=== PATIENT | female | born 1960 | race Caucasian/White ===

== ENCOUNTER 2016-12-23 16:37 | Emergency (ER) | payer MEDICAID ==
--- NOTE | 2016-12-23 17:36 | EDM.PDOC ---
ED HPI GENERAL MEDICAL PROBLEM - General Chief Complaint: Eye Problems Stated Complaint: white discoloration to eyes and Palpitations Time Seen by Provider: 12/23/16 16:50 Source of Information: Reports: Patient History Limitations: Reports: No Limitations - History of Present Illness INITIAL COMMENTS - FREE TEXT/NARRATIVE: HISTORY AND PHYSICAL: History of present illness: [Patient comes to the emergency room with 2 complaints. #1 She noticed a white discoloration to the iris of her eyes. She has had no blurred vision or double vision. No mattering or discharge. She noticed the white discoloration to the superior aspect of both irises when she looked into her magnifying mirror.#2 She reports a history of heart palpitations for the past 5 years. States that she has discussed this with Dr Devi, her PCP, but doesn't remember his recommendations. She states that she had an episode of palpitations last evening when she could feel her heart pounding in her chest. Denies any episode of palpitations today. She experienced no chest pain, shortness of breath or difficulty breathing last night. No pain in her back or abdomen. She is otherwise feeling well. She has recently started a new diet plan. Restarted smoking over the past few months. ] Review of systems: As per history of present illness and below otherwise all systems reviewed and negative. Past medical history: As per history of present illness and as reviewed below otherwise noncontributory. Surgical history: As per history of present illness and as reviewed below otherwise noncontributory. Social history: No reported history of drug or alcohol abuse. Family history: As per history of present illness and as reviewed below otherwise noncontributory. Physical exam: HEENT: Atraumatic, normocephalic. Mild injection to medial L eye. Haziness to superior aspect of both irises, L>R. Consistent with arcus senilis. Ophthalmic exam shows normal appearing optic disc. No cotton wool spots. mucous membranes moist. Lungs: Clear to auscultation, breath sounds equal bilaterally. Heart: S1S2, regular rate and rhythm. Abdomen: Obese, soft, nondistended, nontender. Negative for masses, guarding or rebound. Pelvis: Stable nontender. Genitourinary: Deferred. Rectal: Deferred. Extremities: Atraumatic, negative for cords or calf pain. No cyanosis or edema to feet or lower legs. Neurovascular unremarkable. Neuro: Awake, alert, oriented. Motor and sensory unremarkable throughout. Exam nonfocal. Diagnostics: [EKG, CBC, CMP, troponin, PT/INR/PTT] Impression: [arcus senilis palpitations] Plan: [Patient advised to follow up with Dr. Devi to discuss her ongoing palpitations , and to establish with a local eye doctor. Discussed w/ her that her labs are normal and EKG shows no acute findings. Discharged to home with instructions to follow up as above. ] Definitive disposition and diagnosis as appropriate pending reevaluation and review of above. - Related Data Allergies Allergy/AdvReac Type Severity Reaction Status Date / Time No Known Allergies Allergy Verified 12/23/16 16:54 Home Meds: Home Meds Citalopram Hydrobromide [Celexa] 40 mg PO DAILY 03/29/15 [History] ClonazePAM [KlonoPIN] 1 mg PO BID 12/23/16 [History] Meloxicam [Mobic] 15 mg PO DAILY 12/23/16 [History] Omeprazole 20 mg PO DAILY 12/23/16 [History] Zolpidem Tartrate [Zolpidem Tartrate] 5 mg PO BEDTIME 12/23/16 [History] metFORMIN [Glucophage] 500 mg PO BIDMEALS 12/23/16 [History] Past Medical History Cardiovascular History: Reports: Other (See Below) Other Cardiovascular History: hx heart palpitations Respiratory History: Reports: SOB Other Respiratory History: does not use CPAP Other Musculoskeletal History: lumbosacral radiculopathy at L5 - Past Surgical History Other Female Surgeries/Procedures: hx tubal ligation Social & Family History - Family History Family Medical History: Noncontributory - Tobacco Use Smoking Status *Q: Current Every Day Smoker Years of Tobacco use: 40 Packs/Tins Daily: 1 - Recreational Drug Use Recreational Drug Use: No Drug Use in Last 12 Months: No ED ROS GENERAL - Review of Systems Review Of Systems: ROS reveals no pertinent complaints other than HPI. ED EXAM GENERAL W FULL EYE - Physical Exam Exam: See Below Course - Vital Signs Last Recorded V/S: Last Vital Signs Temp 97.1 F 12/23/16 16:57 Pulse 64 12/23/16 17:42 Resp 14 12/23/16 17:42 BP 109/58 L 07/23/17 17:42 Pulse Ox 93 L 12/23/16 17:42 - Orders/Labs/Meds Orders: Active Orders 24 hr Category Date Time Status EKG Documentation Completion [RC] STAT Care 12/23/16 17:17 Active Labs: Laboratory Tests 12/23/16 12/23/16 12/23/16 Range/Units 17:28 17:28 17:28 WBC 9.35 (4.0-11.0) K/uL RBC 4.78 (4.30-5.90) M/uL Hgb 14.1 (12.0-16.0) g/dL Hct 41.6 (36.0-46.0) % MCV 87.0 (80.0-98.0) fL MCH 29.5 (27.0-32.0) pg MCHC 33.9 (31.0-37.0) g/dL RDW Std Deviation 43.6 (28.0-62.0) fl RDW Coeff of Octavio 14 (11.0-15.0) % Plt Count 308 (150-400) K/uL MPV 9.00 (7.40-12.00) fL Neut % (Auto) 60.0 (48.0-80.0) % Lymph % (Auto) 31.9 (16.0-40.0) % [place] % (Auto) 4.6 (0.0-15.0) % Eos % (Auto) 3.1 (0.0-7.0) % Baso % (Auto) 0.4 (0.0-1.5) % Neut # (Auto) 5.6 (1.4-5.7) K/uL Lymph # (Auto) 3.0 H (0.6-2.4) K/uL [place] # (Auto) 0.4 (0.0-0.8) K/uL Eos # (Auto) 0.3 (0.0-0.7) K/uL Baso # (Auto) 0.0 (0.0-0.1) K/uL Nucleated RBC % 0.0 /100WBC Nucleated RBCs # 0 K/uL INR 0.94 (0.86-1.11) Sodium 139 (136-146) mmol/L Potassium 4.1 (3.5-5.1) mmol/L Chloride 106 (98-110) mmol/L Carbon Dioxide 25 (21-31) mmol/L BUN 10 (6.0-23.0) mg/dL Creatinine 0.8 (0.6-1.5) mg/dL Est Cr Clr Drug Dosing 59.96 mL/min Estimated GFR (MDRD) > 60.0 ml/min Glucose 99 (60-110) mg/dL Calcium 9.7 (8.8-10.8) mg/dL Total Bilirubin 0.4 (0.1-1.5) mg/dL AST 16 (5-40) IU/L ALT 21 (8-54) IU/L Alkaline Phosphatase 118 (40-150) Troponin I (0.0-0.29) NG/ML Total Protein 7.2 (6.0-8.0) g/dL Albumin 3.7 (3.5-5.0) g/dL Globulin 3.5 (2.0-3.5) g/dL Albumin/Globulin Ratio 1.1 L (1.3-2.8) 12/23/16 Range/Units 17:28 WBC (4.0-11.0) K/uL RBC (4.30-5.90) M/uL Hgb (12.0-16.0) g/dL Hct (36.0-46.0) % MCV (80.0-98.0) fL MCH (27.0-32.0) pg MCHC (31.0-37.0) g/dL RDW Std Deviation (28.0-62.0) fl RDW Coeff of Octavio (11.0-15.0) % Plt Count (150-400) K/uL MPV (7.40-12.00) fL Neut % (Auto) (48.0-80.0) % Lymph % (Auto) (16.0-40.0) % [place] % (Auto) (0.0-15.0) % Eos % (Auto) (0.0-7.0) % Baso % (Auto) (0.0-1.5) % Neut # (Auto) (1.4-5.7) K/uL Lymph # (Auto) (0.6-2.4) K/uL [place] # (Auto) (0.0-0.8) K/uL Eos # (Auto) (0.0-0.7) K/uL Baso # (Auto) (0.0-0.1) K/uL Nucleated RBC % /100WBC Nucleated RBCs # K/uL INR (0.86-1.11) Sodium (136-146) mmol/L Potassium (3.5-5.1) mmol/L Chloride (98-110) mmol/L Carbon Dioxide (21-31) mmol/L BUN (6.0-23.0) mg/dL Creatinine (0.6-1.5) mg/dL Est Cr Clr Drug Dosing mL/min Estimated GFR (MDRD) ml/min Glucose (60-110) mg/dL Calcium (8.8-10.8) mg/dL Total Bilirubin (0.1-1.5) mg/dL AST (5-40) IU/L ALT (8-54) IU/L Alkaline Phosphatase (40-150) Troponin I < 0.10 (0.0-0.29) NG/ML Total Protein (6.0-8.0) g/dL Albumin (3.5-5.0) g/dL Globulin (2.0-3.5) g/dL Albumin/Globulin Ratio (1.3-2.8) Departure - Departure Time of Disposition: 18:40 Disposition: Home, Self-Care 01 Condition: Good Clinical Impression: Arcus senilis of both eyes, Palpitations - Discharge Information Instructions: Artificial Tears eye solution, Palpitations, [id number] Referrals: PCP,None [Primary Care Provider] - Forms: ED Department Discharge Additional Instructions: The following information is given to patients seen in the emergency department who are being discharged to home. This information is to outline your options for follow-up care. We provide all patients seen in our emergency department with a follow-up referral. The need for follow-up, as well as the timing and circumstances, are variable depending upon the specifics of your emergency department visit. If you don't have a primary care physician on staff, we will provide you with a referral. We always advise you to contact your personal physician following an emergency department visit to inform them of the circumstance of the visit and for follow-up with them and/or the need for any referrals to a consulting specialist. The emergency department will also refer you to a specialist when appropriate. This referral assures that you have the opportunity for follow-up care with a specialist. All of these measure are taken in an effort to provide you with optimal care, which includes your follow-up. Under all circumstances we always encourage you to contact your private physician who remains a resource for coordinating your care. When calling for follow-up care, please make the office aware that this follow-up is from your recent emergency room visit. If for any reason you are refused follow-up, please contact the [facility] emergency department at and asked to speak to the emergency department charge nurse. [facility] [address] [place] [address] Follow-up with your primary care provider at the clinic listed above in 48-72 hours. Return to ER as needed as discussed. - My Orders Last 24 Hours: My Active Orders 12/23/16 17:17 EKG Documentation Completion [RC] STAT - Assessment/Plan Last 24 Hours: My Active Orders 12/23/16 17:17 EKG Documentation Completion [RC] STAT
[2016-12-23 17:58] LABS: CHLORIDE,CL 106 mmol/L (98-110); SODIUM,NA 139 mmol/L (136-146)
[2016-12-23 18:49] VITALS: BP 118/76
== END 2016-12-23 18:48 | disposition home or self-care (01) ==
LOC: MW.ED 16:37
DX: H18.413 Arcus senilis, bilateral (principal); R00.2 Palpitations; F17.210 Nicotine dependence, cigarettes, uncomplicated; Z79.84 Long term (current) use of oral hypoglycemic drugs; Z79.899 Other long term (current) drug therapy
CPT/HCPCS: 36415; 80053; 84484; 85025; 85610; 93005; 99282; 99285-25

== ENCOUNTER 2018-11-10 08:52 | Inpatient (IN) | payer MEDICARE, MEDICAID ==
[~2018-11-10 08:52] MED LIST: Famotidine 20 MG/2 ML SDV IVPUSH SCH; Ropivacaine 49.25 ML, Ketorolac 30 MG, EPINEPHrine 0.5 MG, cloNIDine 80 MCG in Sodium C... INJECT SCH; Scopolamine 1.5 MG Transdermal Patch TRDERM SCH; Tranexamic Acid 2,000 MG in Sodium Chloride 0.9% 100 ML IV ONE; ceFAZolin 2 GM in Premix Bag 1 BAG IV SCH; oxyCODONE 5 MG Tab PO PRN
[2018-11-10] MEDS: Lactated Ringers 1,000 ML IV SCH ×2 (09:52→15:17)
[2018-11-10] MEDS: Acetaminophen 1,000 MG in Premix Bag 1 BAG IV SCH ×2 (09:58→18:41)
[2018-11-10] MEDS ORDERED: fentaNYL 100 MCG/2 ML SDV ONE (10:08)
[2018-11-10] MEDS ORDERED: Midazolam 1 MG/ML 2 ML SDV ONE (10:08)
[2018-11-10] MEDS ORDERED: Propofol 200 MG/20 ML SDV ONE (10:08)
--- NOTE | 2018-11-10 10:17 | PCM.PREANE ---
Preanesthetic Assessment - Anesthesia/Transfusion/Family Hx Anesthesia History: Prior Anesthesia Without Reaction Family History of Anesthesia Reaction: No Transfusion History: No Prior Transfusion(s) Intubation History: Unknown - Review of Systems General: No Symptoms Pulmonary: No Symptoms Cardiovascular: No Symptoms Gastrointestinal: No Symptoms Neurological: No Symptoms Other: Reports: None - Physical Assessment O2 Sat by Pulse Oximetry: 95 Respiratory Rate: 16 Vital Signs: Last Vital Signs Temp 36.2 C 11/10/18 09:22 Pulse 62 11/10/18 09:22 Resp 16 11/10/18 09:22 BP 126/57 L 11/10/18 09:22 Pulse Ox 95 11/10/18 09:22 Height: 5 ft 2 in Weight: 95.708 kg ASA Class: 3 Mental Status: Alert & Oriented x3 Airway Class: Mallampati = 2 Dentition: Reports: Dentures (upper) Thyro-Mental Finger Breadths: 3 Mouth Opening Finger Breadths: 3 ROM/Head Extension: Full Lungs: Clear to Auscultation, Normal Respiratory Effort, Decreased Breath Sounds Cardiovascular: Regular Rate, Regular Rhythm - Allergies Allergies/Adverse Reactions: Allergies Allergy/AdvReac Type Severity Reaction Status Date / Time No Known Allergies Allergy Verified 11/10/18 09:59 - Blood Blood Available: No - Anesthesia Plan Pre-Op Medication Ordered: None - Acknowledgements Anesthesia Type Planned: Spinal (general anesthesia back-up plan) Pt an Appropriate Candidate for the Planned Anesthesia: Yes Alternatives and Risks of Anesthesia Discussed w Pt/Guardian: Yes Pt/Guardian Understands and Agrees with Anesthesia Plan: Yes PreAnesthesia Questionnaire HEENT History: Reports: Other (See Below) Other HEENT History: wears glasses, has upper denture and lower partial removable denture Cardiovascular History: Reports: Other (See Below) Other Cardiovascular History: hx heart palpitations Respiratory History: Reports: COPD (can't walk 2 blocks without SOB), Sleep Apnea Other Respiratory History: does not tolerate a CPAP, but has "been better" since weight loss Gastrointestinal History: Reports: GERD, Other (See Below) Other Gastrointestinal History: occasional "dumping syndrome" Genitourinary History: Reports: 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 A1c was 5.6 in august - Infectious Disease History Infectious Disease History: Reports: Chicken Pox - Past Surgical History GI Surgical History: Reports: Bariatric Procedure, Cholecystectomy Other GI Surgeries/Procedures: Bariatric surgery 8 months ago Female Surgical History: Reports: Tubal Ligation - SUBSTANCE USE Smoking Status *Q: Current Every Day Smoker (1 pack lasts 3 days) Tobacco Use Within Last Twelve Months: Cigarettes Recreational Drug Use History: No - HOME MEDS Home Medications: Home Meds Budesonide/Formoterol [Symbicort 160-4.5 MCG] 2 puff INH BID 05/01/18 [History] Citalopram Hydrobromide [Celexa] 40 mg PO BEDTIME 05/01/18 [History] Omeprazole 40 mg PO QAM 05/01/18 [History] clonazePAM [Clonazepam] 1 mg PO BID 05/01/18 [History] Albuterol Sulfate [Albuterol Sulfate Hfa] 1 puff INH ASDIRECTED PRN 11/06/18 [ History] Fluticasone/Salmeterol [Advair 250-50 Diskus] 0 dose INH BID 11/06/18 [History] - CURRENT (IN HOUSE) MEDS Current Meds: Current Medications Famotidine (Pepcid) 40 mg IVPUSH ONARRIVE VICTOR MANUEL Last Admin: 11/10/18 09:53 Dose: 40 mg Acetaminophen 1,000 mg/ Premix 100 mls @ 400 mls/hr IV ONARRIVE VICTOR MANUEL Last Admin: 11/10/18 09:58 Dose: 400 mls/hr Cefazolin Sodium/Dextrose 2 gm (/ Premix) 50 mls @ 100 mls/hr IV ONCALL VICTOR MANUEL Ropivacaine 49.25 ml/Ketorolac Tromethamine 30 mg/Epinephrine HCl 0.5 mg/ Clonidine HCl 80 mcg/ Sodium Chloride 75 mls @ 50 mls/sec INJECT ASDIRECTED VICTOR MANUEL Lactated Ringer's (Ringers, Lactated) 1,000 mls @ 100 mls/hr IV ASDIRECTED VICTOR MANUEL Last Admin: 11/10/18 09:52 Dose: 100 mls/hr Scopolamine (Transderm-Scop) 1.5 mg TRDERM ONARRIVE [facility] Last Admin: 11/10/18 09:52 Dose: 1.5 mg Discontinued Medications Fentanyl (Sublimaze) Confirm Administered Dose 100 mcg .ROUTE .STK-MED ONE Stop: 11/10/18 10:09 Tranexamic Acid 2,000 mg/ (Sodium Chloride) 120 mls @ 600 mls/hr IV ASDIRECTED ONE Stop: 11/10/18 06:11 Midazolam HCl (Versed 1 Mg/Ml) Confirm Administered Dose 2 mg .ROUTE .STK-MED ONE Stop: 11/10/18 10:09 Propofol (Diprivan 20 Ml) Confirm Administered Dose 400 mg .ROUTE .STK-MED ONE Stop: 11/10/18 10:09 Tranexamic Acid (Cyklokapron) Confirm Administered Dose 2,000 mg .ROUTE .STK- MED ONE Stop: 11/10/18 09:21
[2018-11-10] MEDS ORDERED: Glycopyrrolate 0.2 MG/ML SDV ONE (12:05)
[2018-11-10] MEDS ORDERED: ceFAZolin/Dextrose,Iso-Osmotic 2 GM/50 ML Duplex Bag IV ONE (12:05)
--- NOTE | 2018-11-10 13:21 | PCM.OPNOTE ---
- General Post-Op/Procedure Note Date of Surgery/Procedure: 11/10/18 Operative Procedure(s): R TKA Post-Op Diagnosis: DJD R knee Anesthesia Technique: Moderate Sedation, Spinal Primary Surgeon: Cher Devi Truck Supervisor: Lindsey Parish in mLs: 50 Condition: Good Free Text/Narrative:: tt=44 min #[id number]
[2018-11-10] MEDS ORDERED: Bisacodyl 10 MG Supp RECTAL PRN (13:22)
[2018-11-10] MEDS ORDERED: diphenhydrAMINE 25 MG Cap PO PRN (13:22)
[2018-11-10] MEDS ORDERED: Docusate Sodium 100 MG Cap PO PRN (13:22)
[2018-11-10] MEDS ORDERED: Sodium Chloride 0.9% 10 ML Syringe FLUSH PRN (13:22)
[2018-11-10] MEDS ORDERED: Aluminum Hydroxide/Magnesium Hydroxide/Simethicone Susp 30 ML Cup PO PRN (13:22)
[2018-11-10] MEDS ORDERED: Morphine PF 30 MG/30 ML PCA Vial IV PRN (13:22)
[2018-11-10] MEDS ORDERED: Ondansetron 4 MG/2 ML SDV IVPUSH PRN (13:22)
[2018-11-10] MEDS ORDERED: Sodium Chloride 0.9% 2.5 ML Syringe FLUSH PRN (13:22)
[2018-11-10] MEDS ORDERED: Lactated Ringers 1,000 ML IV SCH (13:30)
--- NOTE | 2018-11-10 14:26 | PCM.POSTAN ---
POST ANESTHESIA ASSESSMENT - MENTAL STATUS Mental Status: Alert - VITAL SIGNS Pulse Rate: 46 SaO2: 96 Resp Rate: 18 Blood Pressure: 117/77 - RESPIRATORY Respiratory Status: Respiratory Rate WNL, Airway Patent, O2 Saturation Stable, Supplemental Oxygen - CARDIOVASCULAR CV Status: Blood Pressure Stable, Slow Pulse Rate (HR in the 40's, 0.2 mg of glycopyrrolate given per Dr. Wing request. Pt is alert and oriented times three. BP WNL.), Other - GASTROINTESTINAL GI Status: No Symptoms - POST OP HYDRATION Hydration Status: Adequate & Stable
[2018-11-10] MEDS ORDERED: Albuterol 8 GM Inhaler INH PRN (14:35)
--- NOTE | 2018-11-10 16:04 | PCM.CONS ---
H&P History of Present Illness - General Date of Service: 11/10/18 Admit Problem/Dx: s/p RIGHT TKA - History of Present Illness Initial Comments - Free Text/Narative: 58 y/o female with history of DM2 s/p right TKA. States that she is not taking anything for her DM2. Has been under control with diet and weight loss. States her right knee pain is tolerable at this moment. Denies any nausea, vomiting, chest pain, dyspnea, abdominal pain, dysuria, diarrhea, constipation. - Related Data Allergies/Adverse Reactions: Allergies Allergy/AdvReac Type Severity Reaction Status Date / Time No Known Allergies Allergy Verified 11/10/18 09:59 Home Medications: Home Meds Budesonide/Formoterol [Symbicort 160-4.5 MCG] 2 puff INH BID 05/01/18 [History] Citalopram Hydrobromide [Celexa] 40 mg PO BEDTIME 05/01/18 [History] Omeprazole 40 mg PO QAM 05/01/18 [History] clonazePAM [Clonazepam] 1 mg PO BID 05/01/18 [History] Albuterol Sulfate [Albuterol Sulfate Hfa] 2 puff INH Q4H PRN 11/06/18 [History] Fluticasone/Salmeterol [Advair 250-50 Diskus] 0 dose INH BID 11/06/18 [History] Acetaminophen/HYDROcodone [[place] 325-5 MG] 1 - 2 tab PO Q4H PRN #60 tablet 11/10 [Rx] Aspirin 81 mg PO BID #60 tablet 11/10/18 [Rx] Docusate Sodium [Colace] 100 mg PO BID PRN #60 cap 11/10/18 [Rx] Polyethylene Glycol 3350 [MiraLAX] 17 gm PO DAILY #600 gram 11/10/18 [Rx] cephALEXin [Keflex] 500 mg PO BID 7 Days #14 cap 11/10/18 [Rx] metFORMIN [Glucophage] 500 mg PO DAILY 11/10/18 [History] Past Medical History HEENT History: Reports: Other (See Below) Other HEENT History: wears glasses, has upper denture and lower partial removable denture Cardiovascular History: Reports: Other (See Below) Other Cardiovascular History: hx heart palpitations Respiratory History: Reports: COPD (can't walk 2 blocks without SOB), Sleep Apnea Other Respiratory History: does not tolerate a CPAP, but has "been better" since weight loss Gastrointestinal History: Reports: GERD, Other (See Below) Other Gastrointestinal History: occasional "dumping syndrome" Genitourinary History: Reports: 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 A1c was 5.6 in august - Infectious Disease History Infectious Disease History: Reports: Chicken Pox - Past Surgical History GI Surgical History: Reports: Bariatric Procedure, Cholecystectomy Other GI Surgeries/Procedures: Bariatric surgery 8 months ago Female Surgical History: Reports: Tubal Ligation Social & Family History - Family History Family Medical History: Noncontributory - Tobacco Use Smoking Status *Q: Current Every Day Smoker (1 pack lasts 3 days) Years of Tobacco use: 30 Packs/Tins Daily: 0.3 - Caffeine Use Caffeine Use: Reports: None - Recreational Drug Use Recreational Drug Use: No Drug Use in Last 12 Months: No H&P Review of Systems - Review of Systems: Review Of Systems: ROS reveals no pertinent complaints other than HPI. Exam - Exam Exam: See Below - Vital Signs Vital Signs: Last Vital Signs Temp 36.6 C 11/10/18 13:15 Pulse 46 L 11/10/18 14:25 Resp 18 11/10/18 14:25 BP 117/77 11/10/18 14:25 Pulse Ox 96 11/10/18 14:25 Weight: 95.708 kg - Exam General: Alert, Oriented, Cooperative HEENT: Conjunctiva Clear, Mucosa Moist & [place] Lungs: Clear to Auscultation, Normal Respiratory Effort. No: Crackles, Wheezing Cardiovascular: Regular Rate, Regular Rhythm GI/Abdominal Exam: Normal Bowel Sounds, Soft, Non-Tender Extremities: Normal Inspection, No Pedal Edema, Other (Able to move right lower extremity toes. ) Skin: Warm, Dry Neuro Extensive - Mental Status: Alert, Oriented x3 - Patient Data Lab Results Last 24 hrs: Laboratory Results - last 24 hr 11/10/18 11/10/18 11/10/18 Range/Units 09:44 11:03 13:56 POC Glucose 98 102 (60-110) mg/dL Blood Type O POSITIVE Antibody Screen NEGATIVE Consult PN Assessment/Plan Procedures: Procedures ASSAY OF LIPASE (05/01/18) ASSAY OF TROPONIN QUANT (12/23/16) ASSAY THYROID STIM HORMONE (05/05/15) COMPLETE CBC AUTOMATED (05/05/15) COMPLETE CBC W/AUTO DIFF WBC (05/01/18) COMPREHEN METABOLIC PANEL (05/01/18) CT ABD & PELV W/CONTRAST (05/01/18) CT MAXILLOFACIAL W/DYE (06/25/17) CT THORAX W/O DYE (09/01/18) DIAGNOSTIC COLONOSCOPY (04/15/15) ELECTROCARDIOGRAM TRACING (12/23/16) EMERGENCY DEPT VISIT (05/01/18) EMERGENCY DEPT VISIT (12/23/16) GLYCOSYLATED HEMOGLOBIN TEST (06/21/17) HYDRATE IV INFUSION ADD-ON (05/01/18) LIPID PANEL (06/21/17) MEDICAL NUTRITION INDIV IN (05/10/17) MRI JNT OF LWR EXTRE W/O DYE (06/01/15) MRI LUMBAR SPINE W/O DYE (11/26/16) OFFICE/OUTPATIENT VISIT EST (01/08/18) POLYSOM 6/>YRS CPAP 4/> PARM (03/28/18) PROTHROMBIN TIME (12/23/16) ROUTINE VENIPUNCTURE (05/01/18) THER/PROPH/DIAG INJ IV PUSH (05/01/18) TX/PRO/DX INJ NEW DRUG ADDON (05/01/18) ULTRASOUND BREAST LIMITED (07/22/17) UR ALBUMIN SEMIQUANTITATIVE (06/21/17) URINALYSIS AUTO W/SCOPE (05/01/18) URINE CULTURE/COLONY COUNT (05/01/18) X-RAY EXAM L-S SPINE 2/3 VWS (11/01/16) X-RAY EXAM OF KNEE 1 OR 2 (11/15/16) X-RAY EXAM OF KNEE 3 (11/01/16) Problem List Initiated/Reviewed/Updated: Yes Plan: 58 y/o female with history of DM2 s/p right TKA on 11/10/[address] Devi. Currently, hemodynamically stable. Her blood pressure and DM2 seem to be under control. Will order nicotine patch. Pain control and anticoagulation per Ortho.
--- NOTE | 2018-11-10 16:19 | CR ---
EXAMINATION: Right knee HISTORY: Postoperative COMPARISON: None TECHNIQUE: 2 views FINDINGS/IMPRESSION: Right total knee hardware is demonstrated in good position and alignment. Postoperative soft tissue changes are noted.
--- NOTE | 2018-11-10 18:09 | OR ---
SURGEON: Cher Devi MD DATE OF PROCEDURE: 11/10/2018 PREOPERATIVE DIAGNOSIS: Degenerative joint disease, right knee, tricompartmental. POSTOPERATIVE DIAGNOSIS: Degenerative joint disease, right knee, tricompartmental. PROCEDURE: Right total knee arthroplasty. PRIMARY SURGEON: Cher Devi MD. INTAKE COORDINATOR: SHERRY Kimbrough. REASON AND ROLE FOR INTAKE COORDINATOR: Retraction, prepping, draping, positioning, and closure assistance. ANESTHESIA: Spinal with sedation. ESTIMATED BLOOD LOSS: 50 mL. TOURNIQUET TIME: 44 minutes. COMPLICATIONS: None. DVT PROPHYLAXIS: PAS boot and STAR hose to the nonoperative leg. IMPLANTS USED: Lita Persona femoral component size 9 standard (LPS), tibial component size E, 11 mm all-polyethylene articular surface, and 32 mm all-polyethylene patella. INTRAOPERATIVE FINDINGS: Showed severe tricompartmental degenerative changes with grade 4 chondromalacia in all compartments and osteophyte formation. No significant synovitis was found. BRIEF HISTORY: Huyen is a 58-year-old female, who has been bothered by progressive right knee pain. She has previously undergone weight loss surgery and has now achieved a BMI of less than 40. Due to her lack of response to conservative treatment, I did recommend surgical intervention. The risks and goals of the procedure were discussed with the patient and were documented preoperatively. She agreed to proceed. DESCRIPTION OF PROCEDURE: The patient was properly identified and brought to the operating room. The patient was then transferred from the operating room cart and placed on the operating table in a supine position. Anesthesia was administered by the anesthesia staff. After adequate anesthesia was obtained, a well-padded tourniquet was applied to the surgical lower extremity. Wyatt catheter was placed. The lower extremity was then prepped in standard fashion using ChloraPrep solution. It was then sterilely draped. A time-out was performed to ensure correct site and procedure. Preoperative antibiotics were given along with one gram tranexamic acid IV. The surgical site had been marked preoperatively. An Esmarch was used to exsanguinate the right lower extremity and the tourniquet was inflated. An incision was made over the anterior aspect of the knee. The subcutaneous tissues were dissected down to the level of the fascia. A medial parapatellar approach to the knee was made. A portion of the infrapatellar fat pad was then excised. The distal femur was then exposed. The step reamer was used to gain access to the intramedullary canal. This was placed in 6 degrees of valgus. Pins were placed. The distal femoral cutting block was placed and the distal femoral cut was made. Instrumentation was then removed. The femur was then sized. Both Whitesides' line and the epicondylar axis were then marked with electrocautery. The 4-in-1 cutting block was placed. This was placed in a slightly externally rotated position, which corresponded well with the previously drawn lines. The cutting guide was then pinned into position. An Alberto wing guide was used to check the depth of resection of our anterior condylar cut and it was felt that no notching would occur. The anterior condylar cut was then made followed by the posterior condylar cut. Both the posterior chamfer and anterior chamfer cuts were then made. The cutting block was then removed along with the excess bony remnants. We then turned our attention to the tibia. The anterior cruciate ligament and posterior cruciate ligament were released and a posterior cruciate ligament retractor was placed to allow the tibia to be pulled anteriorly. The tibial extra-medullary guide was then positioned. We chose to take approximately 2 mm off the lowest side. The proximal tibia cutting guide was then placed and screwed into position. The proximal tibial resection was then made with care being taken to protect the patellar tendon. The bony resection was then removed. The remainder of the medial and lateral meniscus were then excised. Care was taken to protect the popliteus tendon. The tibia was then sized to the appropriate size. The distal femur was then elevated. The posterior capsule was stripped off the distal femur both medially and laterally. The posterior capsule along with the medial and lateral gutters were then injected with a standard mixture consisting of clonidine, epinephrine, Toradol, and Ropivacaine, unless any allergies were found preoperatively. The femoral component was then placed onto the distal femur in a slightly lateral position. This fit the femur well. A box cut was then made without difficulty. This was then removed. The tibial trial along with the polyethylene liner was then placed. The knee came easily into full extension and was stable to varus and valgus stressing both in full extension and flexion. Any additional releases were performed at this time. We then returned our attention to the patella. The patella was everted and towel clamps were used to hold the patella in position. It was resected to a 15 millimeter thickness. It was then sized to the appropriate size. It was prepared in the usual fashion after placing the predetermined size clamps. This was placed in a slightly superior and medial position. The clamp was then removed. The patellar trial button was placed. The knee was taken through a range of motion using the no-touch technique. The patella tracked centrally. A drop rodney was then placed to check alignment. All instruments were then removed from the knee. The tibial sizer was then placed on the tibia. The tibia was prepared in the usual fashion using the reamer and broach. This was then removed. All bony surfaces were copiously irrigated with Pulsavac solution. They were then suctioned dry. Cement was prepared on the back table in the usual manner. Antibiotic impregnated cement was used if the patient was diabetic. Once it was prepared, the bone ends were again suctioned dry. The tibia was cemented into place first. This was malleted into position. Excess cement was then cleared. The femur was then placed in a similar manner. We placed the polyethylene trial into place and the knee was brought into full extension. An axial load was placed while keeping the knee in full extension. The patella button was also cemented into position and the clamp was used to hold this in place as the cement was allowed to cure. The wound was copiously irrigated with saline using a Pulsavac hot patcher. Following this, 1 gram of tranexamic acid was applied topically to the wound during the curing process. After we had adequate curing of the cement, the knee was again taken through a range of motion. The size of the polyethylene was then determined. The polyethylene trial was then removed. The tibial tray was suctioned to make sure there was no remaining soft tissue or cement. Excess cement was cleared from around the edges of the prosthesis as well. The tourniquet was then deflated. We were able to observe for any excess bleeding and none was noted. Electrocautery was used to maintain hemostasis. An additional gram of tranexamic acid was given IV. The retractors were again placed and the predetermined polyethylene was then placed. This was locked into position without difficulty. The knee was again taken through a range of motion with no change from the prior exam. The fascial layer was closed with Number One Vicryl. The subcutaneous tissues were closed with 2-0 Vicryl. The skin was closed with carol. Xeroform gauze was placed over the wound and a bulky dressing was applied. The patient was then awakened from anesthesia and transferred back to the operating room cart. They were brought to the recovery room in stable condition. All needle and sponge counts were correct. ARJUN ROE /[id number]
[2018-11-10] MEDS: Nicotine 7 MG/24 Hr Patch TRDERM SCH (18:40)
[2018-11-10] MEDS ORDERED: Citalopram 20 MG Tab PO SCH (21:00)
[2018-11-10] MEDS: ceFAZolin 2 GM in Premix Bag 1 BAG IV SCH (21:30)
[2018-11-10] MEDS: Fluticasone/Salmeterol 250-50 MCG Inhalation Powder 14/Diskus INH SCH (21:34)
[2018-11-10] MEDS: Budesonide/Formoterol 160-4.5 MCG/Puff 6 GM Inhaler INH SCH (21:35)
[2018-11-11] MEDS: Acetaminophen 1,000 MG in Premix Bag 1 BAG IV SCH ×3 (00:54→05:18)
[2018-11-11] MEDS: Lactated Ringers 1,000 ML IV SCH (02:34)
[2018-11-11] MEDS: ceFAZolin 2 GM in Premix Bag 1 BAG IV SCH (04:13)
[2018-11-11] MEDS ORDERED: Morphine 2 MG/ML Syringe IVPUSH PRN (06:00)
[2018-11-11] MEDS: Acetaminophen/HYDROcodone 325-5 MG Tab PO PRN ×2 (06:46→11:39)
[2018-11-11] MEDS ORDERED: Cephalexin 500 MG Cap PO SCH (09:00)
[2018-11-11] MEDS ORDERED: Famotidine 20 MG Tab PO SCH (09:00)
[2018-11-11] MEDS ORDERED: ClonazePAM 1 MG Tab PO PRN (09:00)
[2018-11-11] MEDS ORDERED: Aspirin 325 MG Tab PO SCH (09:00)
[2018-11-11] MEDS ORDERED: Polyethylene Glycol 3350 Powder 17 GM Packet PO SCH (09:00)
[2018-11-11] MEDS ORDERED: Aspirin 81 MG Tab.EC PO SCH (09:12)
[2018-11-11] MEDS: Fluticasone/Salmeterol 250-50 MCG Inhalation Powder 14/Diskus INH SCH (09:25)
[2018-11-11] MEDS: Budesonide/Formoterol 160-4.5 MCG/Puff 6 GM Inhaler INH SCH (09:27)
[2018-11-11] MEDS: Nicotine 7 MG/24 Hr Patch TRDERM SCH (09:31)
[2018-11-11 09:44] VITALS: BP 117/77
--- NOTE | 2018-11-11 09:44 | PCM48HPAN ---
Post Anesthesia Note - EVALUATION WITHIN 48HRS OF ANESTHETIC Vital Signs in Normal Range: Yes Patient Participated in Evaluation: Yes Respiratory Function Stable: Yes Airway Patent: Yes Cardiovascular Function Stable: Yes Hydration Status Stable: Yes Pain Control Satisfactory: Yes Nausea and Vomiting Control Satisfactory: Yes Mental Status Recovered: Yes Pulse Rate: 46 Resp Rate: 16 Blood Pressure: 117/77 - COMMENTS/OBSERVATIONS Free Text/Narrative:: no anesthesia problems
--- NOTE | 2018-11-11 12:44 | PCM.SURGPN ---
- General Info Date of Service: 11/11/18 (0745) Date of Surgery/Procedure: 11/10/18 (s/p RIGHT TKA) POD#: 1 Post-Op Diagnosis: degenerative joint disease right knee Admission Diagnosis/Problem: Knee pain Functional Status: Reports: Tolerating Diet (waiting for family to bring her a coffee), Ambulating. Denies: Urinating (cason catheter still inserted) - Review of Systems General: Reports: No Symptoms. Denies: Fever, Chills HEENT: Reports: No Symptoms Pulmonary: Reports: No Symptoms. Denies: Shortness of Breath, Cough Cardiovascular: Reports: No Symptoms. Denies: Chest Pain Gastrointestinal: Reports: No Symptoms. Denies: Abdominal Pain, Nausea, Vomiting Genitourinary: Reports: Other (requesting to have cason catheter removed) Musculoskeletal: Reports: Joint Pain Neurological: Denies: Confusion Psychiatric: Reports: Anxiety - Patient Data Vitals - Most Recent: Last Vital Signs Temp 36.8 C 11/11/18 07:20 Pulse 46 L 11/11/18 09:44 Resp 16 11/11/18 09:44 BP 117/77 11/11/18 09:44 Pulse Ox 93 L 11/11/18 07:20 Weight - Most Recent: 95.708 kg I&O - Last 24 Hours: Intake & Output 11/10/18 11/11/18 11/11/18 22:59 06:59 14:59 Intake Total 2179 Output Total 500 Balance 1679 Lab Results Last 24 Hrs: Laboratory Results - last 24 hr 11/10/18 11/11/18 Range/Units 13:56 06:08 Hgb 12.0 (12.0-16.0) g/dL Hct 37.8 (36.0-46.0) % POC Glucose 102 (60-110) mg/dL Med Orders - Current: Current Medications Hydrocodone Bitart/Acetaminophen (Freeman 325-5 Mg) 1 - 2 tab PO Q4H PRN PRN Reason: Pain Last Admin: 11/11/18 11:39 Dose: 2 tab Al Hydroxide/Mg Hydroxide (Mag-Al Plus) 30 ml PO Q4H PRN PRN Reason: Indigestion Last Admin: 11/10/18 15:26 Dose: 30 ml Albuterol (Ventolin Hfa) 0 gm INH Q4H PRN PRN Reason: Wheezing Aspirin (Halfprin) 81 mg PO BID [facility] Last Admin: 11/11/18 09:26 Dose: 81 mg Bisacodyl (Dulcolax) 10 mg RECTAL DAILY PRN PRN Reason: Constipation Cephalexin (Keflex) 500 mg PO BID [facility] Stop: 11/18/18 09:01 Last Admin: 11/11/18 09:26 Dose: 500 mg Citalopram Hydrobromide (Celexa) 40 mg PO BEDTIME [facility] Last Admin: 11/10/18 21:15 Dose: 40 mg Clonazepam (Klonopin) 1 mg PO BID PRN PRN Reason: Anxiety Diphenhydramine HCl (Benadryl) 25 - 50 mg PO Q6H PRN PRN Reason: Itching Last Admin: 11/10/18 15:26 Dose: 25 mg Docusate Sodium (Colace) 100 mg PO BID PRN PRN Reason: Constipation Last Admin: 11/10/18 21:15 Dose: 100 mg Famotidine (Pepcid) 40 mg PO DAILY [facility] Last Admin: 11/11/18 09:25 Dose: 40 mg Lactated Ringer's (Ringers, Lactated) 1,000 mls @ 100 mls/hr IV ASDIRECTED [facility] Cefazolin Sodium/Dextrose 2 gm (/ Premix) 50 mls @ 100 mls/hr IV ONETIME ONE Stop: 11/11/18 20:29 Morphine Sulfate (Morphine) 1 - 3 mg IVPUSH Q3H PRN PRN Reason: Pain Last Admin: 11/11/18 10:48 Dose: 2 mg Nicotine (Habitrol) 7 mg TRDERM DAILY [facility] Last Admin: 11/11/18 09:31 Dose: Not Given Ondansetron HCl (Zofran) 4 mg IVPUSH Q6H PRN PRN Reason: Nausea/Vomiting Last Admin: 11/10/18 16:30 Dose: 4 mg Budesonide/Formoterol 160-4.5 Mcg/Puff 6 Gm Inhaler 0 each INH BID [facility] Last Admin: 11/11/18 09:27 Dose: 2 each Polyethylene Glycol (Miralax) 17 gm PO DAILY [facility] Last Admin: 11/11/18 09:24 Dose: 17 gm Fluticasone/Salmeterol (Advair Diskus 250-50) 1 puff INH BID [facility] Last Admin: 11/11/18 09:25 Dose: 1 puff Scopolamine (Transderm-Scop) 1.5 mg TRDERM ONARRIVE [facility] Last Admin: 11/10/18 09:52 Dose: 1.5 mg Sodium Chloride (Saline Flush) 10 ml FLUSH ASDIRECTED PRN PRN Reason: Keep Vein Open Sodium Chloride (Saline Flush) 2.5 ml FLUSH ASDIRECTED PRN PRN Reason: Keep Vein Open Discontinued Medications Aspirin (Aspirin) 81 mg PO BID [facility] Cefazolin Sodium/Dextrose (Ancef) Confirm Administered Dose 2 gm IV .STK-MED ONE Stop: 11/10/18 12:06 Famotidine (Pepcid) 40 mg IVPUSH ONARRIVE [facility] Last Admin: 11/10/18 09:53 Dose: 40 mg Fentanyl (Sublimaze) Confirm Administered Dose 100 mcg .ROUTE .STK-MED ONE Stop: 11/10/18 10:09 Glycopyrrolate (Robinul) Confirm Administered Dose 0.4 mg .ROUTE .STK-MED ONE Stop: 11/10/18 12:06 Acetaminophen 1,000 mg/ Premix 100 mls @ 400 mls/hr IV ONARRIVE [facility] Last Admin: 11/11/18 00:54 Dose: 400 mls/hr Cefazolin Sodium/Dextrose 2 gm (/ Premix) 50 mls @ 100 mls/hr IV ONCALL [facility] Last Admin: 11/10/18 20:46 Dose: 100 mls/hr Ropivacaine 49.25 ml/Ketorolac Tromethamine 30 mg/Epinephrine HCl 0.5 mg/ Clonidine HCl 80 mcg/ Sodium Chloride 75 mls @ 50 mls/sec INJECT ASDIRECTED [facility] Lactated Ringer's (Ringers, Lactated) 1,000 mls @ 100 mls/hr IV ASDIRECTED [facility] Last Admin: 11/11/18 02:34 Dose: 100 mls/hr Tranexamic Acid 2,000 mg/ (Sodium Chloride) 120 mls @ 600 mls/hr IV ASDIRECTED ONE Stop: 11/10/18 06:11 Last Admin: 11/10/18 15:16 Dose: Not Given Lidocaine HCl (Xylocaine-Mpf 1%) Confirm Administered Dose 5 mls @ as directed .ROUTE .STK-MED ONE Stop: 11/10/18 12:06 Acetaminophen 1,000 mg/ Premix 100 mls @ 400 mls/hr IV Q6H [facility] Stop: 11/11/18 06:14 Last Admin: 11/11/18 05:18 Dose: 400 mls/hr Cefazolin Sodium/Dextrose 2 gm (/ Premix) 50 mls @ 100 mls/hr IV Q8H [facility] Stop: 11/11/18 04:29 Last Admin: 11/11/18 04:13 Dose: 100 mls/hr Midazolam HCl (Versed 1 Mg/Ml) Confirm Administered Dose 2 mg .ROUTE .STK-MED ONE Stop: 11/10/18 10:09 Morphine Sulfate (Morphine Office Admin 30 Mg In 30 Ml) 30 mg IV ASDIRECTED PRN; Protocol PRN Reason: Pain Stop: 11/11/18 06:00 Last Admin: 11/10/18 13:49 Dose: 30 mg Oxycodone HCl (Oxycodone) 5 - 10 mg PO Q4H PRN PRN Reason: Pain Stop: 11/11/18 08:00 Propofol (Diprivan 20 Ml) Confirm Administered Dose 400 mg .ROUTE .STK-MED ONE Stop: 11/10/18 10:09 Tranexamic Acid (Cyklokapron) Confirm Administered Dose 2,000 mg .ROUTE .STK- MED ONE Stop: 11/10/18 09:21 - Exam Wound/Incisions: Dressing Dry and Intact, Other (well approximated with carol. Minimal swelling. Small amount of bloody drainage from surgical incision after ambulating.). No: Erythema Quality Assessment: Urine Catheter, DVT Prophylaxis (SCDs bilaterally, Compression stockings, ambulation & ASA to start today) General: Alert, Oriented, Cooperative, No Acute Distress, Other (When speaking to her, as she was sitting in chair for breakfast, eyes would close (as if falling asleep), but she acknowledged being spoken to and repeated conversation) HEENT: Pupils Equal Neck: Supple Lungs: Normal Respiratory Effort Cardiovascular: Regular Rate, Regular Rhythm GI/Abdominal Exam: Soft Extremities: No Pedal Edema, Other (AT/EHL/gastroc 5/5) Neurological: Normal Gait, Normal Speech, Normal Tone Psy/Mental Status: Alert, Normal Affect, Normal Mood, Anxious (wondering about when she would get her AM dose of clonazepam) - Problem List Review Problem List Initiated/Reviewed/Updated: Yes - My Orders Last 24 Hours: Active Orders 24 hr Category Date Time Status Communication Order [RC] PRN Care 11/10/18 13:22 Active Communication Order [RC] PRN Care 11/10/18 13:22 Active Neurovascular Check [RC] Q2HR Care 11/10/18 13:22 Active Notify Provider Consults [RC] ASDIRECTED Care 11/10/18 13:28 Active Notify Provider Vital Signs [RC] ASDIRECTED Care 11/10/18 13:22 Active RT Incentive Spirometry [RC] Q1HWA Care 11/10/18 13:22 Active Urinary Catheter Removal [RC] ASDIRECTED Care 11/11/18 13:22 Active Vital Signs [RC] PER UNIT ROUTINE Care 11/10/18 13:22 Active Wound Care [RC] DAILY Care 11/10/18 13:22 Active Consult to Physician [CONS] Routine Cons 11/10/18 13:22 Active PT Evaluation and Treatment [CONS] Routine Cons 11/10/18 13:22 Active BASIC METABOLIC PANEL,BMP [CHEM] Routine Lab 11/11/18 13:29 Ordered HEMOGLOBIN/HEMATOCRIT,HH [HEME] DAILY Lab 11/12/18 06:00 Ordered Acetaminophen/HYDROcodone [Freeman 325-5 MG] Med 11/11/18 06:00 Active 1 - 2 tab PO Q4H PRN Albuterol [Ventolin HFA] Med 11/10/18 14:35 Active 0 gm INH Q4H PRN Alum Hydrox/Mag Hydrox/Simeth [Mag-Al Plus] Med 11/10/18 13:22 Active 30 ml PO Q4H PRN Aspirin [Halfprin] Med 11/11/18 09:12 Active 81 mg PO BID Bisacodyl [Dulcolax] Med 11/10/18 13:22 Active 10 mg RECTAL DAILY PRN Citalopram [Celexa] Med 11/10/18 21:00 Active 40 mg PO BEDTIME ClonazePAM [KlonoPIN] Med 11/11/18 09:00 Active 1 mg PO BID PRN Docusate Sodium [Colace] Med 11/10/18 13:22 Active 100 mg PO BID PRN Famotidine [Pepcid] Med 11/11/18 09:00 Active 40 mg PO DAILY Fluticasone/Salmeterol [Advair Diskus 250-50] Med 11/10/18 21:00 Active 1 puff INH BID Lactated Ringers [Ringers, Lactated] 1,000 ml Med 11/10/18 13:30 Active IV ASDIRECTED Morphine Med 11/11/18 06:00 Active 1 - 3 mg IVPUSH Q3H PRN Nicotine [Habitrol] Med 11/10/18 16:30 Active 7 mg TRDERM DAILY Ondansetron [Zofran] Med 11/10/18 13:22 Active 4 mg IVPUSH Q6H PRN Patient's Own Medication [Ptom] Med 11/10/18 21:00 Active 0 each INH BID Polyethylene Glycol 3350 [MiraLAX] Med 11/11/18 09:00 Active 17 gm PO DAILY Sodium Chloride 0.9% [Saline Flush] Med 11/10/18 13:22 Active 10 ml FLUSH ASDIRECTED PRN Sodium Chloride 0.9% [Saline Flush] Med 11/10/18 13:22 Active 2.5 ml FLUSH ASDIRECTED PRN ceFAZolin [Ancef] 2 gm Med 11/11/18 20:00 Active Premix Bag 1 bag IV ONETIME cephALEXin [Keflex] Med 11/11/18 09:00 Active 500 mg PO BID diphenhydrAMINE [Benadryl] Med 11/10/18 13:22 Active 25 - 50 mg PO Q6H PRN Convert IV to Saline Lock [OM.PC] PRN Oth 11/10/18 13:30 Ordered Convert IV to Saline Lock [OM.PC] PRN Oth 11/11/18 13:30 Ordered Ice Therapy [OM.PC] Routine Oth 11/10/18 13:22 Ordered Medication Orders Hydrocodone Bitart/Acetaminophen (Freeman 325-5 Mg) 1 - 2 tab PO Q4H PRN PRN Reason: Pain Last Admin: 11/11/18 11:39 Dose: 2 tab Admin: 11/11/18 06:46 Dose: 2 tab Al Hydroxide/Mg Hydroxide (Mag-Al Plus) 30 ml PO Q4H PRN PRN Reason: Indigestion Last Admin: 11/10/18 15:26 Dose: 30 ml Albuterol (Ventolin Hfa) 0 gm INH Q4H PRN PRN Reason: Wheezing Aspirin (Halfprin) 81 mg PO BID [facility] Last Admin: 11/11/18 09:26 Dose: 81 mg Bisacodyl (Dulcolax) 10 mg RECTAL DAILY PRN PRN Reason: Constipation Cephalexin (Keflex) 500 mg PO BID [facility] Stop: 11/18/18 09:01 Last Admin: 11/11/18 09:26 Dose: 500 mg Citalopram Hydrobromide (Celexa) 40 mg PO BEDTIME [facility] Last Admin: 11/10/18 21:15 Dose: 40 mg Clonazepam (Klonopin) 1 mg PO BID PRN PRN Reason: Anxiety Diphenhydramine HCl (Benadryl) 25 - 50 mg PO Q6H PRN PRN Reason: Itching Last Admin: 11/10/18 15:26 Dose: 25 mg Docusate Sodium (Colace) 100 mg PO BID PRN PRN Reason: Constipation Last Admin: 11/10/18 21:15 Dose: 100 mg Famotidine (Pepcid) 40 mg PO DAILY [facility] Last Admin: 11/11/18 09:25 Dose: 40 mg Lactated Ringer's (Ringers, Lactated) 1,000 mls @ 100 mls/hr IV ASDIRECTED [facility] Cefazolin Sodium/Dextrose 2 gm (/ Premix) 50 mls @ 100 mls/hr IV ONETIME ONE Stop: 11/11/18 20:29 Morphine Sulfate (Morphine) 1 - 3 mg IVPUSH Q3H PRN PRN Reason: Pain Last Admin: 11/11/18 10:48 Dose: 2 mg Nicotine (Habitrol) 7 mg TRDERM DAILY [facility] Last Admin: 11/11/18 09:31 Dose: Not Given Admin: 11/10/18 18:40 Dose: Not Given Ondansetron HCl (Zofran) 4 mg IVPUSH Q6H PRN PRN Reason: Nausea/Vomiting Last Admin: 11/10/18 16:30 Dose: 4 mg Budesonide/Formoterol 160-4.5 Mcg/Puff 6 Gm Inhaler 0 each INH BID [facility] Last Admin: 11/11/18 09:27 Dose: 2 each Admin: 11/10/18 21:35 Dose: 2 each Polyethylene Glycol (Miralax) 17 gm PO DAILY [facility] Last Admin: 11/11/18 09:24 Dose: 17 gm Fluticasone/Salmeterol (Advair Diskus 250-50) 1 puff INH BID [facility] Last Admin: 11/11/18 09:25 Dose: 1 puff Admin: 11/10/18 21:34 Dose: 1 puff Scopolamine (Transderm-Scop) 1.5 mg TRDERM ONARRIVE [facility] Last Admin: 11/10/18 09:52 Dose: 1.5 mg Sodium Chloride (Saline Flush) 10 ml FLUSH ASDIRECTED PRN PRN Reason: Keep Vein Open Sodium Chloride (Saline Flush) 2.5 ml FLUSH ASDIRECTED PRN PRN Reason: Keep Vein Open - Assessment Assessment (Free Text/Narrative):: s/p RIGHT TKA anxiety - Plan Plan (Free Text/Narrative):: Post-operatively, she is doing well. VSS/afebrile. Hg 12.0 She was ambulating with staff this AM to use the restroom. Urine output 500cc, and cason still inserted. Will bolus her remainder of 500cc in IV bag, and check urine output at 1000 and if adequate, remove cason. Tolerating po liquids and food. Had coffee yesterday after returning from PACU and waiting for her morning coffee. No N/V. Pain controlled last night with VAT OPERATOR Morphine. Was given Freeman this AM and she voiced that she was having more pain than last night. She did not have PT yesterday afternoon. PT scheduled for today. She does not have stairs into her house. Rx written for [facility]. DVT prophylaxis includes bilateral SCDs, compression stockings, ambulation and ASA therapy starting today. Diligent use of polarcare for pain control and minimize swelling. She voices desire to be discharged today, understanding that cason needs to be discontinued, she needs to void, and has to have PT. Surgical dressing dry & intact. Removed and large AquaCell bandage applied. Hospitalist consultation was appreciated d/t her other medical history (DM type 2, s/p bariatric surgery, anxiety & depression, COPD and current smoker).
[2018-11-11] MEDS ORDERED: Acetaminophen/oxyCODONE 325-5 MG Tab PO PRN (13:00)
[2018-11-11 13:55] LABS: CHLORIDE,CL 102 mmol/L (98-107); SODIUM,NA 137 mmol/L (136-145)
[2018-11-11] MEDS ORDERED: ceFAZolin 2 GM in Premix Bag 1 BAG IV ONE (20:00)
== END 2018-11-11 15:00 | disposition home or self-care (01) | DRG 470 ==
LOC: MW.MS 08:52 → EDSTATUS 10:45
PROVIDERS: ADMIT Orthopaedic Surgery; ATTEND Orthopaedic Surgery
PROC: 0SRC0J9 Replacement of Right Knee Joint with Synthetic Substitute, Cemented, Open Approach (ICD-10-PCS; principal; 2018-11-10)
DX: M17.11 Unilateral primary osteoarthritis, right knee (principal); J44.9 Chronic obstructive pulmonary disease, unspecified; E11.9 Type 2 diabetes mellitus without complications; F41.9 Anxiety disorder, unspecified; F17.210 Nicotine dependence, cigarettes, uncomplicated; K21.9 Gastro-esophageal reflux disease without esophagitis; G89.29 Other chronic pain; M54.9 Dorsalgia, unspecified; E66.9 Obesity, unspecified; F43.10 Post-traumatic stress disorder, unspecified; Z90.49 Acquired absence of other specified parts of digestive tract; Z98.51 Tubal ligation status; Z68.38 Body mass index [BMI] 38.0-38.9, adult; Z79.84 Long term (current) use of oral hypoglycemic drugs; Z79.82 Long term (current) use of aspirin; Z79.899 Other long term (current) drug therapy
CPT/HCPCS: 01402; 36415; 73560-26-RT; 73560-RT; 80048; 82962; 85014; 85018; 86850; 86900; 86901; 97161-GP; 97530-GP; A4217; A9270-GY; C1776; J0131; J0171; J0690; J0735; J1885; J2001; J2250; J2270; J2274; J2405; J2704; J2795; J3010; J3490; J7050; J7120

== ENCOUNTER 2019-01-30 10:58 | Emergency (ER) | payer MEDICARE, MEDICAID ==
[2019-01-30] MEDS ORDERED: Morphine 2 MG/ML Syringe IVPUSH ONE (11:01)
[2019-01-30] MEDS ORDERED: Ondansetron 4 MG/2 ML SDV IVPUSH ONE (11:01)
--- NOTE | 2019-01-30 11:08 | EDM.PDOC ---
ED HPI GENERAL MEDICAL PROBLEM - General Chief Complaint: Lower Extremity Injury/Pain Stated Complaint: EMS ARRIVAL Time Seen by Provider: 01/30/19 11:00 Source of Information: Reports: Patient History Limitations: Reports: No Limitations - History of Present Illness INITIAL COMMENTS - FREE TEXT/NARRATIVE: HISTORY AND PHYSICAL: History of present illness: Patient is a 58-year-old female who presents to the emergency room today with complaints of right knee pain. She states she had total knee replacement on 11/[address] Devi. Has not had any postoperative complications. This past one week she has been driving long distances and has noticed some anterior/lateral knee pain. This morning while getting out of her car she felt a "pop" sensation and has had pain since. Currently her pain is to the lateral and posterior right knee. Has the sensation that the skin is warm to touch. She denies any numbness or tingling to the distal extremity. Review of systems: As per history of present illness and below otherwise all systems reviewed and negative. Past medical history: As per history of present illness and as reviewed below otherwise noncontributory. Surgical history: As per history of present illness and as reviewed below otherwise noncontributory. Social history: See social history for further information Family history: As per history of present illness and as reviewed below otherwise noncontributory. Physical exam: General: Well-developed and well-nourished 58-year-old female. Alert and oriented. Nontoxic appearing and in no acute distress. HEENT: Atraumatic, normocephalic, pupils equal and reactive bilaterally, negative for conjunctival pallor or scleral icterus, mucous membranes moist, nontender, trachea midline. No drooling or trismus noted. No meningeal signs. No hot potato voice noted. Lungs: Clear to auscultation, breath sounds equal bilaterally, chest nontender. Heart: S1S2, regular rate and rhythm without overt murmur Abdomen: Soft, nondistended, nontender. Negative for masses or hepatosplenomegaly. Negative for costovertebral tenderness. Skin: Well-healed linear scar to the right knee. No localized area of swelling, warmth or erythema. Intact, warm, dry. No lesions or rashes noted. Extremities: Moves all extremities per self without deficits, negative for cords. No knee instability noted, negative drawer test. Tenderness with palpation to the lateral knee/proximal calf. Strong pedal pulses. Cap refill less than 3 seconds. Neurovascular unremarkable. Neuro: Awake, alert, oriented. Cranial nerves II through XII unremarkable. Cerebellum unremarkable. Motor and sensory unremarkable throughout. Exam nonfocal. Notes: X-ray of the right knee shows no fractures, hardware from the total knee is in satisfactory position without any evidence of loosening. Joint effusion is suspected. Soft tissue is unremarkable. Normal right lower extremity venous ultrasound, no sign of deep venous thrombosis. Small hematoma is anterior to the patella Discussed imagining results with patient. Crutches were fitted for patient. We discussed the importance of following up with the orthopedic provider, phone numbers were given for nearby facilities. Patient declines the need for pain medication that she states she does have oxycodone at home. Supportive care measures were reviewed and discussed. Voices understanding and is agreeable to plan of care. Denies any further questions or concerns at this time. Diagnostics: CBC, CMP, ultrasound, x-ray Therapeutics: IV morphine, Zofran, Toradol, crutches Prescription: Declines Impression: Right knee injury Plan: 1. Rest, ice, elevate the affected extremity. Please use the crutches as directed. 2. Tylenol and/or Ibuprofen as needed for pain management. 3. Follow up with the Orthopedic provider as we discussed. Return to the ED as needed and as discussed. Definitive disposition and diagnosis as appropriate pending reevaluation and review of above. R knee Pain Score (Numeric/FACES): 12 - Related Data Allergies Allergy/AdvReac Type Severity Reaction Status Date / Time No Known Allergies Allergy Verified 11/10/18 09:59 Home Meds: Home Meds Budesonide/Formoterol [Symbicort 160-4.5 MCG] 2 puff INH BID 05/01/18 [History] Citalopram Hydrobromide [Celexa] 40 mg PO BEDTIME 05/01/18 [History] Omeprazole 40 mg PO QAM 05/01/18 [History] clonazePAM [Clonazepam] 1 mg PO BID 05/01/18 [History] Albuterol Sulfate [Albuterol Sulfate Hfa] 2 puff INH Q4H PRN 11/06/18 [History] Fluticasone/Salmeterol [Advair 250-50 Diskus] 1 dose INH BID 11/06/18 [History] Docusate Sodium [Colace] 100 mg PO BID PRN #60 cap 11/10/18 [Rx] Polyethylene Glycol 3350 [MiraLAX] 17 gm PO DAILY #600 gram 11/10/18 [Rx] cephALEXin [Keflex] 500 mg PO BID 7 Days #14 cap 11/10/18 [Rx] Acetaminophen/oxyCODONE [Percocet 325-5 MG] 1 - 2 tab PO Q4H PRN #60 tablet 04/21 [Rx] Aspirin [Halfprin] 81 mg PO BID #60 tab.ec 11/11/18 [Rx] Past Medical History HEENT History: Reports: Other (See Below) Other HEENT History: wears glasses, has upper denture and lower partial removable denture Cardiovascular History: Reports: Other (See Below) Other Cardiovascular History: hx heart palpitations Respiratory History: Reports: COPD, Sleep Apnea Other Respiratory History: does not tolerate a CPAP, but has "been better" since weight loss Gastrointestinal History: Reports: GERD, Other (See Below) Other Gastrointestinal History: occasional "dumping syndrome" Genitourinary History: Reports: None 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 A1c was 5.6 in august - Infectious Disease History Infectious Disease History: Reports: Chicken Pox - Past Surgical History GI Surgical History: Reports: Bariatric Procedure, Cholecystectomy Other GI Surgeries/Procedures: Bariatric surgery 8 months ago Female Surgical History: Reports: Tubal Ligation Social & Family History - Family History Family Medical History: Noncontributory - Caffeine Use Caffeine Use: Reports: None Review of Systems - Review of Systems Review Of Systems: ROS reveals no pertinent complaints other than HPI. ED EXAM, GENERAL - Physical Exam Exam: See Below (See dictation) Course - Vital Signs Last Recorded V/S: Last Vital Signs Temp 98.0 F 01/30/19 10:59 Pulse 85 01/30/19 13:01 Resp 18 01/30/19 13:01 BP 120/52 L 01/30/19 13:01 Pulse Ox 98 01/30/19 10:59 - Orders/Labs/Meds Orders: Active Orders 24 hr Category Date Time Status DME for Discharge [COMM] Stat Oth 01/30/19 13:52 Ordered Labs: Laboratory Tests 01/30/19 01/30/19 Range/Units 11:15 11:15 WBC 6.59 (4.0-11.0) K/uL RBC 4.62 (4.30-5.90) M/uL Hgb 14.3 (12.0-16.0) g/dL Hct 42.7 (36.0-46.0) % MCV 92.4 (80.0-98.0) fL MCH 31.0 (27.0-32.0) pg MCHC 33.5 (31.0-37.0) g/dL RDW Std Deviation 45.4 (28.0-62.0) fl RDW Coeff of Octavio 13 (11.0-15.0) % Plt Count 301 (150-400) K/uL MPV 9.40 (7.40-12.00) fL Neut % (Auto) 46.4 L (48.0-80.0) % Lymph % (Auto) 42.9 H (16.0-40.0) % Rock % (Auto) 6.5 (0.0-15.0) % Eos % (Auto) 3.6 (0.0-7.0) % Baso % (Auto) 0.6 (0.0-1.5) % Neut # (Auto) 3.1 (1.4-5.7) K/uL Lymph # (Auto) 2.8 H (0.6-2.4) K/uL Rock # (Auto) 0.4 (0.0-0.8) K/uL Eos # (Auto) 0.2 (0.0-0.7) K/uL Baso # (Auto) 0.0 (0.0-0.1) K/uL Nucleated RBC % 0.0 /100WBC Nucleated RBCs # 0 K/uL Sodium 143 (136-145) mmol/L Potassium 3.8 (3.5-5.1) mmol/L Chloride 107 (98-107) mmol/L Carbon Dioxide 25.9 (21.0-32.0) mmol/L BUN 9 (7.0-18.0) mg/dL Creatinine 0.6 (0.6-1.0) mg/dL Est Cr Clr Drug Dosing 79.94 mL/min Estimated GFR (MDRD) > 60.0 ml/min Glucose 84 (74-106) mg/dL Calcium 10.5 H (8.5-10.1) mg/dL Total Bilirubin 0.4 (0.2-1.0) mg/dL AST 10 L (15-37) IU/L ALT 16 (14-63) IU/L Alkaline Phosphatase 115 (46-116) U/L Total Protein 6.8 (6.4-8.2) g/dL Albumin 3.4 (3.4-5.0) g/dL Globulin 3.4 (2.6-4.0) g/dL Albumin/Globulin Ratio 1.0 (0.9-1.6) Meds: Medications Discontinued Medications Generic Name Dose Route Start Last Admin Trade Name Freq PRN Reason Stop Dose Admin Ketorolac Tromethamine 30 mg 01/30/19 11:58 01/30/19 12:10 Toradol IVPUSH 01/30/19 11:59 30 mg ONETIME ONE Administration Morphine Sulfate 2 mg 01/30/19 11:01 01/30/19 11:25 Morphine IVPUSH 01/30/19 11:02 2 mg ONETIME ONE Administration Morphine Sulfate 4 mg 01/30/19 13:52 Morphine IVPUSH 01/30/19 13:53 ONETIME ONE Ondansetron HCl 4 mg 01/30/19 11:01 01/30/19 11:23 Zofran IVPUSH 01/30/19 11:02 4 mg ONETIME ONE Administration Departure - Departure Time of Disposition: 13:58 Disposition: Home, Self-Care 01 Clinical Impression: Right knee injury Qualifiers: Encounter type: initial encounter Qualified Code(s): S89.91XA - Unspecified injury of right lower leg, initial encounter - Discharge Information Instructions: Knee Sprain, Adult, [id number] Referrals: PCP,Unknown [Primary Care Provider] - Forms: ED Department Discharge Additional Instructions: The following information is given to patients seen in the emergency department who are being discharged to home. This information is to outline your options for follow-up care. We provide all patients seen in our emergency department with a follow-up referral. The need for follow-up, as well as the timing and circumstances, are variable depending upon the specifics of your emergency department visit. If you don't have a primary care physician on staff, we will provide you with a referral. We always advise you to contact your personal physician following an emergency department visit to inform them of the circumstance of the visit and for follow-up with them and/or the need for any referrals to a consulting specialist. The emergency department will also refer you to a specialist when appropriate. This referral assures that you have the opportunity for follow-up care with a specialist. All of these measure are taken in an effort to provide you with optimal care, which includes your follow-up. Under all circumstances we always encourage you to contact your private physician who remains a resource for coordinating your care. When calling for follow-up care, please make the office aware that this follow-up is from your recent emergency room visit. If for any reason you are refused follow-up, please contact the Emergency Department at and asked to speak to the emergency department charge nurse. Dr Murillo, Orthopedist [facility] [address] [place] [address] Orthopedics at [facility] [address] [place] [address] [facility] [address] [place] [address] 1. Rest, ice, elevate the affected extremity. Please use the crutches as directed. 2. Tylenol and/or Ibuprofen as needed for pain management. 3. Follow up with the Orthopedic provider as we discussed. Return to the ED as needed and as discussed. - My Orders Last 24 Hours: My Active Orders 01/30/19 13:52 DME for Discharge [COMM] Stat - Assessment/Plan Last 24 Hours: My Active Orders 01/30/19 13:52 DME for Discharge [COMM] Stat
[2019-01-30] MEDS ORDERED: Ketorolac 30 MG/ML SDV IVPUSH ONE (11:58)
[2019-01-30 12:09] LABS: CHLORIDE,CL 107 mmol/L (98-107); SODIUM,NA 143 mmol/L (136-145)
--- NOTE | 2019-01-30 13:12 | CR ---
Indication: Injury and pain Technique: Right knee 3 views Comparison: None Findings/Impression: Bones: Alignment is normal. No fractures or bone lesions. Joint spaces: Hardware from a total knee arthroplasty appears in satisfactory position without evidence of loosening. A joint effusion is suspected. Soft tissues: Unremarkable. Dictated by Angelo Fall MD @ Jan 30 2019 1:07PM Signed by Dr. Angelo Fall @ Jan 30 2019 1:10PM
--- NOTE | 2019-01-30 13:35 | US ---
INDICATION: Leg pain and swelling TECHNIQUE: Ultrasound venous duplex lower right extremity. Compression venous exam was performed using smith-scale, color Doppler, and spectral Doppler imaging. COMPARISON: November 14, 2018 FINDINGS: Sonographic imaging demonstrates the right common femoral, deep femoral, superficial femoral, popliteal, posterior tibial and greater saphenous and the contralateral left common femoral veins to be fully compressible with normal color Doppler blood flow. Small hematoma anterior to the patella measures 4.5 x 2.5 x 0.9 cm. IMPRESSION: Normal right lower extremity venous ultrasound, no sign of deep venous thrombosis. Small hematoma is anterior to the patella. Dictated by Angelo Fall MD @ Jan 30 2019 1:31PM Signed by Dr. Angelo Fall @ Jan 30 2019 1:33PM
[2019-01-30] MEDS ORDERED: Morphine 4 MG/ML Syringe IVPUSH ONE (13:52)
[2019-01-30 14:48] VITALS: BP 121/74
== END 2019-01-30 14:48 | disposition home or self-care (01) ==
LOC: MW.ED 10:58
DX: S80.01XA Contusion of right knee, initial encounter (principal); J44.9 Chronic obstructive pulmonary disease, unspecified; K21.9 Gastro-esophageal reflux disease without esophagitis; F41.9 Anxiety disorder, unspecified; E11.9 Type 2 diabetes mellitus without complications; Z79.899 Other long term (current) drug therapy; Z79.82 Long term (current) use of aspirin; Z79.84 Long term (current) use of oral hypoglycemic drugs; X50.9XXA Other and unspecified overexertion or strenuous movements or postures, initial encounter
CPT/HCPCS: 36415; 73562; 80053; 85025; 93971; 96374; 96375; 96376; 99284; J1885; J2270; J2405

== ENCOUNTER 2019-02-06 10:28 | Emergency (ER) | payer MEDICARE, MEDICAID ==
[2019-02-06 10:41] VITALS: BP 133/61
--- NOTE | 2019-02-06 11:07 | EDM.PDOC ---
ED HPI GENERAL MEDICAL PROBLEM - General Chief Complaint: Lower Extremity Injury/Pain Stated Complaint: KNEE PAIN Time Seen by Provider: 02/06/19 10:35 - History of Present Illness INITIAL COMMENTS - FREE TEXT/NARRATIVE: HISTORY AND PHYSICAL: History of present illness: Patient's 58-year-old white female with history of chronic right knee pain status post total knee replacement she was seen in the recent past and had a workup including venous Doppler x-ray and lab work that were all unremarkable she does have a scheduled follow-up appointment next Saturday with orthopedic surgery. There's been no fever chills nausea vomiting or other complaints Review of systems: As per history of present illness and below otherwise all systems reviewed and negative. Past medical history: As per history of present illness and as reviewed below otherwise noncontributory. Surgical history: As per history of present illness and as reviewed below otherwise noncontributory. Social history: No reported history of drug or alcohol abuse. Family history: As per history of present illness and as reviewed below otherwise noncontributory. Physical exam: HEENT: Atraumatic, normocephalic, pupils reactive, negative for conjunctival pallor or scleral icterus, mucous membranes moist, throat clear, neck supple, nontender, trachea midline. Lungs: Clear to auscultation, breath sounds equal bilaterally, chest nontender. Heart: S1S2, regular, negative for clicks, rubs, or JVD. Abdomen: Soft, nondistended, nontender. Negative for masses or hepatosplenomegaly. Negative for costovertebral tenderness. Pelvis: Stable nontender. Genitourinary: Deferred. Rectal: Deferred. Extremities: Right knee has a stable joint there is moderate swelling no erythema or warmth limited range of motion no localized point tenderness Neuro: Awake, alert, oriented. Cranial nerves II through XII unremarkable. Cerebellum unremarkable. Motor and sensory unremarkable throughout. Exam nonfocal. Diagnostics: None Therapeutics: None Impression: #1 postoperative pain right knee Definitive disposition and diagnosis as appropriate pending reevaluation and review of above. Right Knee Pain Score (Numeric/FACES): 10 - Related Data Allergies Allergy/AdvReac Type Severity Reaction Status Date / Time No Known Allergies Allergy Verified 02/06/19 10:41 Home Meds: Home Meds Budesonide/Formoterol [Symbicort 160-4.5 MCG] 2 puff INH BID 05/01/18 [History] Citalopram Hydrobromide [Celexa] 40 mg PO BEDTIME 05/01/18 [History] Omeprazole 40 mg PO QAM 05/01/18 [History] clonazePAM [Clonazepam] 1 mg PO BID 05/01/18 [History] Albuterol Sulfate [Albuterol Sulfate Hfa] 2 puff INH Q4H PRN 11/06/18 [History] Fluticasone/Salmeterol [Advair 250-50 Diskus] 1 dose INH BID 11/06/18 [History] Docusate Sodium [Colace] 100 mg PO BID PRN #60 cap 11/10/18 [Rx] Polyethylene Glycol 3350 [MiraLAX] 17 gm PO DAILY #600 gram 11/10/18 [Rx] cephALEXin [Keflex] 500 mg PO BID 7 Days #14 cap 11/10/18 [Rx] Acetaminophen/oxyCODONE [Percocet 325-5 MG] 1 - 2 tab PO Q4H PRN #60 tablet 04/21 [Rx] Aspirin [Halfprin] 81 mg PO BID #60 tab.ec 11/11/18 [Rx] Past Medical History HEENT History: Reports: Other (See Below) Other HEENT History: wears glasses, has upper denture and lower partial removable denture Cardiovascular History: Reports: Other (See Below) Other Cardiovascular History: hx heart palpitations Respiratory History: Reports: COPD, Sleep Apnea Other Respiratory History: does not tolerate a CPAP, but has "been better" since weight loss Gastrointestinal History: Reports: GERD, Other (See Below) Other Gastrointestinal History: occasional "dumping syndrome" Genitourinary History: Reports: 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 A1c was 5.6 in august - Infectious Disease History Infectious Disease History: Reports: Chicken Pox - Past Surgical History GI Surgical History: Reports: Bariatric Procedure, Cholecystectomy Other GI Surgeries/Procedures: Bariatric surgery 8 months ago Female Surgical History: Reports: Tubal Ligation Social & Family History - Family History Family Medical History: Noncontributory - Tobacco Use Smoking Status *Q: Current Every Day Smoker Years of Tobacco use: 40 Packs/Tins Daily: 0.5 - Caffeine Use Caffeine Use: Reports: None - Recreational Drug Use Recreational Drug Use: No Review of Systems - Review of Systems Review Of Systems: ROS reveals no pertinent complaints other than HPI. ED EXAM, GENERAL - Physical Exam Exam: See Below (See dictation) Course - Vital Signs Last Recorded V/S: Last Vital Signs Temp 36.8 C 02/06/19 10:37 Pulse 64 02/06/19 10:37 Resp 18 02/06/19 10:37 BP 133/61 02/06/19 10:37 Pulse Ox 95 02/06/19 10:37 Departure - Departure Time of Disposition: 11:06 Disposition: Home, Self-Care 01 Condition: Good Clinical Impression: Postoperative pain - Discharge Information Referrals: PCP,Unknown [Primary Care Provider] - Additional Instructions: The following information is given to patients seen in the emergency department who are being discharged to home. This information is to outline your options for follow-up care. We provide all patients seen in our emergency department with a follow-up referral. The need for follow-up, as well as the timing and circumstances, are variable depending upon the specifics of your emergency department visit. If you don't have a primary care physician on staff, we will provide you with a referral. We always advise you to contact your personal physician following an emergency department visit to inform them of the circumstance of the visit and for follow-up with them and/or the need for any referrals to a consulting specialist. The emergency department will also refer you to a specialist when appropriate. This referral assures that you have the opportunity for followup care with a specialist. All of these measure are taken in an effort to provide you with optimal care, which includes your followup. Under all circumstances we always encourage you to contact your private physician who remains a resource for coordinating your care. When calling for followup care, please make the office aware that this follow-up is from your recent emergency room visit. If for any reason you are refused follow-up, please contact the [facility] emergency department at and asked to speak to the emergency department charge nurse. Continue current medications as prescribed walker as directed and keep scheduled orthopedic surgery appointment as discussed return as needed as discussed
== END 2019-02-06 11:09 | disposition home or self-care (01) ==
LOC: MW.ED 10:28
DX: G89.18 Other acute postprocedural pain (principal); M25.561 Pain in right knee; J44.9 Chronic obstructive pulmonary disease, unspecified; K21.9 Gastro-esophageal reflux disease without esophagitis; E11.9 Type 2 diabetes mellitus without complications; F41.9 Anxiety disorder, unspecified; F17.210 Nicotine dependence, cigarettes, uncomplicated; Z79.899 Other long term (current) drug therapy; Z79.82 Long term (current) use of aspirin
CPT/HCPCS: 99283

== ENCOUNTER 2020-02-01 00:08 | Emergency (ER) | payer MEDICARE, MEDICAID ==
[2020-02-01] MEDS ORDERED: Morphine 10 MG/ML Syringe IM ONE (00:42)
--- NOTE | 2020-02-01 00:48 | EDM.PDOC ---
ED HPI GENERAL MEDICAL PROBLEM - General Chief Complaint: Lower Extremity Injury/Pain Stated Complaint: KNEE PAIN- RIGHT KNEE Time Seen by Provider: 02/01/20 00:10 - History of Present Illness INITIAL COMMENTS - FREE TEXT/NARRATIVE: 59-year-old female with history of chronic right knee pain ever since a right total knee replacement 1 year ago presenting with worsening pain since a fall a few days ago the patient reports that her knee gave out and she fell backwards. She can still ambulate with a walker but she has worsening pain that is now more medial as opposed to her typical lateral pain. She also feels like there are is a new indent just above her patella. She denies fevers or chills patient reports that when she can find an appropriate position she is able to stand and bear some weight and then able to walk with her walker. Patient was reportedly told in the past by an orthopedic surgeon that her hardware was slightly missed sized. She reports that she does have an appointment with Dr. Monroe of the local orthopedic surgeons for later this week. She also reports that she is having lipomas removed in a few days. Right Knee Pain Score (Numeric/FACES): 10 - Related Data Allergies Allergy/AdvReac Type Severity Reaction Status Date / Time No Known Allergies Allergy Verified 02/01/20 00:28 Home Meds: Home Meds Budesonide/Formoterol [Symbicort 160-4.5 MCG] 2 puff INH BID 05/01/18 [History] Omeprazole 40 mg PO QAM 05/01/18 [History] clonazePAM [Clonazepam] 1 mg PO BID 05/01/18 [History] Albuterol Sulfate [Albuterol Sulfate Hfa] 2 puff INH Q4H PRN 11/06/18 [History] Fluticasone Propion/Salmeterol [Advair 250-50 Diskus] 1 dose INH BID 11/06/18 [History] Aspirin [Halfprin] 81 mg PO BID #60 tab.ec 11/11/18 [Rx] Dextroamphetamine Sulfate [Dextroamphetamine Sulfate ER] 10 mg PO DAILY 02/01/20 [History] Past Medical History HEENT History: Reports: Other (See Below) Other HEENT History: wears glasses, has upper denture and lower partial removable denture Cardiovascular History: Reports: Other (See Below) Other Cardiovascular History: hx heart palpitations Respiratory History: Reports: COPD, Sleep Apnea Other Respiratory History: does not tolerate a CPAP, but has "been better" since weight loss Gastrointestinal History: Reports: GERD, Other (See Below) Other Gastrointestinal History: occasional "dumping syndrome" Genitourinary History: Reports: None [employer] WORK[employer] History: Reports: Musculoskeletal History: Reports: Back Pain, Chronic, Osteoarthritis Other Musculoskeletal History: lumbosacral radiculopathy at L5 Neurological History: Reports: Headaches, Chronic Other Neuro History: headaches 3x per week, more if she misses her anxiety medication Psychiatric History: Reports: Anxiety, PTSD Endocrine/Metabolic History: Reports: Diabetes, Type II, Obesity/BMI 30+ Other Endocrine/Metabolic History: After loosing weight post bariatric surgery she is in "remission" from diabetes, used to take Metformin. A1c was 5.6 in august - Infectious Disease History Infectious Disease History: Reports: Chicken Pox - Past Surgical History GI Surgical History: Reports: Bariatric Procedure, Cholecystectomy Other GI Surgeries/Procedures: Bariatric surgery 8 months ago Female Surgical History: Reports: Tubal Ligation Social & Family History - Family History Family Medical History: Noncontributory - Tobacco Use Smoking Status *Q: Never Smoker - Caffeine Use Caffeine Use: Reports: Coffee - Recreational Drug Use Recreational Drug Use: No Review of Systems - Review of Systems Review Of Systems: See Below Constitutional: Reports: No Symptoms Respiratory: Reports: No Symptoms Cardiovascular: Reports: No Symptoms GI/Abdominal: Reports: No Symptoms Musculoskeletal: Reports: Other (Per HPI) Skin: Reports: No Symptoms Neurological: Reports: No Symptoms ED EXAM, GENERAL - Physical Exam Exam: See Below Free Text/Narrative:: General Appearance: No acute distress, appears comfortable Skin: No rash HEENT: Normocephalic/atraumatic, sclera anicteric, mucous membranes moist Neck: Normal range of motion Back: Normal Musculoskeletal: 2+ left DP pulse, tenderness at an indent just superior to the patella no erythema no clear palpable defect and extensor mechanism is intact patient unable to tolerate full ligamentous testing due to pain. No clinical joint effusion tenderness along the medial and lateral joint line Neurologic: Awake, alert, no obvious deficits, moving all extremities Psychiatric: Appropriate, cooperative Course - Vital Signs Last Recorded V/S: Last Vital Signs Temp 97.6 F 02/01/20 00:16 Pulse 74 08/31/20 00:16 Resp 16 02/01/20 00:16 BP 128/68 02/01/20 00:16 Pulse Ox 96 02/01/20 00:16 - Orders/Labs/Meds Meds: Medications Discontinued Medications Generic Name Dose Route Start Last Admin Trade Name Jacquelyn PRN Reason Stop Dose Admin Morphine Sulfate 6 mg 02/01/20 00:42 02/01/20 01:19 Morphine IM 02/01/20 00:43 6 mg ONETIME ONE Administration Departure - Departure Time of Disposition: 01:34 Disposition: Home, Self-Care 01 Condition: Good Clinical Impression: Knee pain, chronic - Discharge Information *PRESCRIPTION DRUG MONITORING PROGRAM REVIEWED*: Yes *COPY OF PRESCRIPTION DRUG MONITORING REPORT IN PATIENT COSME: Not Applicable Instructions: Chronic Knee Pain, Adult Referrals: Janelle Ibarra DO [Primary Care Provider] - Forms: ED Department Discharge Additional Instructions: Please be sure to keep your follow-up appointment with the orthopedic surgeon for later this week. Please be sure to not take the Percocet more often than as directed. It is primarily for use at night to help you sleep. Please do not drive while taking this medication and do not operate heavy machinery do not combine it with alcohol. The following information is given to patients seen in the emergency department who are being discharged to home. This information is to outline your options for follow-up care. We provide all patients seen in our emergency department with a follow-up referral. The need for follow-up, as well as the timing and circumstances, are variable depending upon the specifics of your emergency department visit. If you don't have a primary care physician on staff, we will provide you with a referral. We always advise you to contact your personal physician following an emergency department visit to inform them of the circumstance of the visit and for follow-up with them and/or the need for any referrals to a consulting specialist. The emergency department will also refer you to a specialist when appropriate. This referral assures that you have the opportunity for follow-up care with a specialist. All of these measure are taken in an effort to provide you with optimal care, which includes your follow-up. Under all circumstances we always encourage you to contact your private physician who remains a resource for coordinating your care. When calling for follow-up care, please make the office aware that this follow-up is from your recent emergency room visit. If for any reason you are refused follow-up, please contact the [facility] Emergency Department at and asked to speak to the emergency department charge nurse. Sepsis Event Note (ED) - Evaluation Sepsis Screening Result: No Definite Risk - Focused Exam Vital Signs: Vital Signs Temp Pulse Resp BP Pulse Ox 02/01/20 00:16 97.6 F 74 16 128/68 96 - Assessment/Plan Assessment:: 59-year-old female presented with acute on chronic joint pain given the worsening and change in the pain after her fall x-ray ordered. Patient was given a shot of IM morphine for pain. Patient reports that she has not done well with hydrocodone but did do well with Percocet in the past. Given the severity of her pain and worsening symptoms the fact that she has not had any recent narcotics I will provide a short prescription for Percocet which she will filler picker from the pharmacy tomorrow. I offered [employer] but the patient cannot afford this. No findings of septic arthritis no findings of clinical joint effusion no findings of gout acute fracture felt unlikely but again x-ray pending. Pt already has a walker at home and already has appropriate follow-up scheduled. XR unremarkable as expected. [place] Rx record reviewed and no active or recent narcotic prescriptions are evident.
--- NOTE | 2020-02-01 01:30 | CR ---
INDICATION: Chronic knee pain following fall TECHNIQUE: Three views right knee COMPARISON: None FINDINGS: Bones: Alignment is normal. No fractures or bone lesions. Joint spaces: Right knee arthroplasty Soft tissues: Unremarkable. IMPRESSION: No evidence of acute or recent trauma. Dictated by Lenin Mosquera MD @ Feb 01 2020 1:22AM Signed by Dr. Lenin Mosquera @ Feb 01 2020 1:29AM
[2020-02-01 01:39] VITALS: BP 116/71; PULSE 63
== END 2020-02-01 01:51 | disposition home or self-care (01) ==
LOC: MW.ED 00:08
DX: G89.29 Other chronic pain (principal); M25.561 Pain in right knee; J44.9 Chronic obstructive pulmonary disease, unspecified; E11.9 Type 2 diabetes mellitus without complications; E66.9 Obesity, unspecified; Z68.33 Body mass index [BMI] 33.0-33.9, adult; Z90.49 Acquired absence of other specified parts of digestive tract; Z98.51 Tubal ligation status; Z79.899 Other long term (current) drug therapy
CPT/HCPCS: 73562; 96372; 99283; J2270

== ENCOUNTER 2023-06-13 23:04 | Emergency (ER) | payer MEDICARE, MEDICAID ==
[2023-06-13 23:33] LABS: APPEARANCE,URINE CLEAR; BILIRUBIN,URINE NEGATIVE (NEGATIVE); COLOR,URINE YELLOW; GLUCOSE,URINE NEGATIVE (NEGATIVE); KETONES,URINE NEGATIVE (NEGATIVE); LEUKOCYTE ESTERASE,URINE NEGATIVE (NEGATIVE); NITRITE,URINE NEGATIVE (NEGATIVE); OCCULT BLOOD,URINE NEGATIVE (NEGATIVE); PROTEIN,URINE NEGATIVE (NEGATIVE); UROBILINOGEN,URINE 0.2 EU/dL (<2.0)
[2023-06-13 23:40] LABS: BASOPHILS ABSOLUTE AUTO 0.07 K/uL (0.00-0.20); BASOPHILS PERCENT AUTO 0.9 % (0.0-1.0); EOSINOPHILS ABSOLUTE AUTO 0.29 K/uL (0.00-0.45); EOSINOPHILS PERCENT AUTO 3.7 % (0.0-6.0); HEMATOCRIT 40.8 % (37.0-47.0); HEMOGLOBIN 13.6 g/dL (12.0-16.0); IMMATURE GRAN ABSOLUTE AUTO 0.02 K/uL (0.00-0.05); IMMATURE GRAN PERCENT AUTO 0.3 % (0.0-0.4); LYMPHOCYTES ABSOLUTE AUTO 3.22 K/uL (1.00-4.80); LYMPHOCYTES PERCENT AUTO 40.9 % (24.0-44.0); MEAN CORPUSCULAR HEMOGLOBIN 28.4 pg (28.0-32.0); MEAN CORPUSCULAR HGB CONC 33.3 g/dL (32.0-36.0); MEAN CORPUSCULAR VOLUME 85.2 fL (83.0-99.0); MEAN PLATELET VOLUME 8.8 fL (9.4-12.3); MONOCYTES ABSOLUTE AUTO 0.38 K/uL (0.00-0.80); MONOCYTES PERCENT AUTO 4.8 % (0.0-8.0); NEUTROPHILS ABSOLUTE AUTO 3.89 K/uL (1.80-7.70); NEUTROPHILS PERCENT AUTO 49.4 % (41.0-71.0); PLATELET COUNT,PLT 351 K/uL (150-400); RED BLOOD CELL COUNT 4.79 M/uL (4.10-5.30); WHITE BLOOD CELL COUNT,WBC 7.87 K/uL (3.9-11.3)
[2023-06-13 23:43] LABS: AMPHETAMINES SCREEN, URINE NEGATIVE (CUTOFF=500); BARBITURATE SCREEN,URINE NEGATIVE (CUTOFF=200); BENZODIAZEPINES SCREEN,URINE NEGATIVE (CUTOFF=150); BUPRENORPHINE SCREEN,URINE NEGATIVE (CUTOFF=10); METHADONE SCREEN, URINE NEGATIVE (CUTOFF=200); METHAMPHETAMINES SCREEN, URINE NEGATIVE (CUTOFF=500); OXYCODONE SCREEN,URINE NEGATIVE (CUT0FF=100); PCP SCREEN,URINE NEGATIVE (CUTOFF=25); THC SCREEN,URINE 20 NG/ML NEGATIVE (CUTOFF=50)
[2023-06-13 23:54] LABS: BACTERIA,URINE NOT SEEN (NEGATIVE); EPITHELIAL CELLS,URINE FEW (NONE-FEW); RBC,URINE 0-1 (0-2/HPF)
[2023-06-14 00:11] LABS: A/G RATIO 0.8 (0.9-1.6); ACETAMINOPHEN <2.0 ug/mL; ALANINE AMINOTRANSFERASE,ALT 18 IU/L (14-63); ALBUMIN 3.4 g/dL (3.4-5.0); ALKALINE PHOSPHATASE 144 U/L (46-116); ASPARTATE AMNIOTRANSFERASE,AST 13 IU/L (15-37); BILIRUBIN TOTAL 0.1 mg/dL (0.2-1.0); BLOOD UREA NITROGEN,BUN 11 mg/dL (7.0-18.0); CALCIUM 9.1 mg/dL (8.5-10.1); CARBON DIOXIDE,CO2 28.4 mmol/L (21.0-32.0); CHLORIDE,CL 106 mmol/L (98-107); CREATININE 0.9 mg/dL (0.6-1.0); EST CRCL DRUG DOSING (CG) 49.53 mL/min; ETHANOL BLOOD MEDICAL 217 mg/dL; GLUCOSE RANDOM 114 mg/dL (74-106); MAGNESIUM 2.1 mg/dL (1.8-2.4); POTASSIUM,K 3.8 mmol/L (3.5-5.1); PROTEIN TOTAL,TP 7.8 g/dL (6.4-8.2); SALICYLATE 3.5 mg/dL (0.0-20.0); SODIUM,NA 142 mmol/L (136-145); TSH ULTRASENSITIVE 0.93 uIU/mL (0.36-3.74)
[2023-06-14 00:15] LABS: ESTIMATED GFR 73 mL/min (>60)
[2023-06-14] MEDS ORDERED: Nicotine 21 MG/24 Hr Patch TRDERM ONE (00:19)
[2023-06-14 00:25] LABS: CORONAVIRUS COVID-19 NAA NEGATIVE (NEGATIVE); INFLUENZA A NAA NEGATIVE (NEGATIVE); INFLUENZA B NAA NEGATIVE (NEGATIVE); RESPIRATORY SYNCYTIAL VIR NAA NEGATIVE (NEGATIVE)
[2023-06-14] MEDS ORDERED: ClonazePAM 1 MG Tab PO STA ×2 (00:39→02:17)
[2023-06-14] MEDS ORDERED: Ibuprofen 600 MG Tab PO ONE ×2 (00:59→10:26)
[2023-06-14] MEDS ORDERED: Acetaminophen 325 MG Tab PO ONE (05:11)
[2023-06-14] MEDS ORDERED: Morphine 2 MG/ML SYRINGE IM ONE (06:41)
[2023-06-14] MEDS ORDERED: Naloxone 0.4 MG/ML SDV IVPUSH PRN (06:41)
[2023-06-14] MEDS ORDERED: Ondansetron 4 MG Tab.DIS PO ONE (06:49)
[2023-06-14 09:21] VITALS: BP 141/87; PULSE 70
[2023-06-14] MEDS ORDERED: ClonazePAM 1 MG Tab PO SCH (21:00)
== END 2023-06-14 10:36 ==
LOC: MW.ED 23:04
DX: T14.91XA Suicide attempt, initial encounter (principal); F32.A Depression, unspecified; F10.129 Alcohol abuse with intoxication, unspecified; K21.9 Gastro-esophageal reflux disease without esophagitis; J44.9 Chronic obstructive pulmonary disease, unspecified; E11.9 Type 2 diabetes mellitus without complications; E66.9 Obesity, unspecified; Z79.82 Long term (current) use of aspirin; Z79.899 Other long term (current) drug therapy; Z90.49 Acquired absence of other specified parts of digestive tract; Z20.822 Contact with and (suspected) exposure to COVID-19; Z3A.39 39 weeks gestation of pregnancy
CPT/HCPCS: 0241U; 36415; 71045; 80053; 80143; 80179; 80305; 80307; 81001; 83735; 84443; 85025; 93005; 96372; 99285; A9270; J2270

== ENCOUNTER 2024-01-16 08:12 | Day surgery (SDC) | payer MEDICARE, MEDICAID ==
[~2024-01-16 08:12] MED LIST changes: -Famotidine 20 MG/2 ML SDV IVPUSH SCH; -Ropivacaine 49.25 ML, Ketorolac 30 MG, EPINEPHrine 0.5 MG, cloNIDine 80 MCG in Sodium C... INJECT SCH; -Scopolamine 1.5 MG Transdermal Patch TRDERM SCH; +Sodium Chloride 0.9% 10 ML Syringe FLUSH PRN; +Sodium Chloride 0.9% 2.5 ML Syringe FLUSH PRN; +Sodium Chloride 0.9% 20 ML SDV IV PRN; -Tranexamic Acid 2,000 MG in Sodium Chloride 0.9% 100 ML IV ONE; -ceFAZolin 2 GM in Premix Bag 1 BAG IV SCH; -oxyCODONE 5 MG Tab PO PRN
[2024-01-16] MEDS: Lactated Ringers 1,000 ML IV SCH (09:00)
[2024-01-16] MEDS ORDERED: propofoL 50 ML ONE (09:15)
[2024-01-16] MEDS ORDERED: dexmedeTOMIDine HCl 200 MCG/2 ML SDV ONE (10:30)
[2024-01-16] MEDS ORDERED: Water For Injection, Sterile 20 ML ONE (10:30)
[2024-01-16 12:44] VITALS: BP 128/63; PULSE 56
== END 2024-01-16 11:55 | disposition home or self-care (01) ==
LOC: MW.SDS 08:12
PROVIDERS: ATTEND Surgery
DX: Z12.11 Encounter for screening for malignant neoplasm of colon (principal); K62.1 Rectal polyp; K63.5 Polyp of colon; K29.50 Unspecified chronic gastritis without bleeding; K31.89 Other diseases of stomach and duodenum; K44.9 Diaphragmatic hernia without obstruction or gangrene; K57.30 Diverticulosis of large intestine without perforation or abscess without bleeding; K21.9 Gastro-esophageal reflux disease without esophagitis; Z80.0 Family history of malignant neoplasm of digestive organs; Z86.010 Personal history of colon polyps; J44.9 Chronic obstructive pulmonary disease, unspecified; E66.01 Morbid (severe) obesity due to excess calories; Z68.42 Body mass index [BMI] 45.0-49.9, adult; F32.A Depression, unspecified; Z79.82 Long term (current) use of aspirin; Z79.899 Other long term (current) drug therapy
CPT/HCPCS: 43239; 45385; J2704; J7120; J3490

== ENCOUNTER 2024-08-03 10:33 | Emergency (ER) | payer MEDICAID, MEDICARE ==
[2024-08-03] MEDS: Acetaminophen/oxyCODONE 325-5 MG Tab PO ONE (11:14)
[2024-08-03 12:11] VITALS: BP 98/58; PULSE 69
== END 2024-08-03 12:11 | disposition home or self-care (01) ==
LOC: MW.ED 10:33
DX: M54.41 Lumbago with sciatica, right side (principal); M54.42 Lumbago with sciatica, left side; G89.18 Other acute postprocedural pain; J44.9 Chronic obstructive pulmonary disease, unspecified; K21.9 Gastro-esophageal reflux disease without esophagitis; E66.9 Obesity, unspecified; E11.9 Type 2 diabetes mellitus without complications; Z75.8 Other problems related to medical facilities and other health care; Z79.899 Other long term (current) drug therapy; W19.XXXA Unspecified fall, initial encounter
CPT/HCPCS: 72131; 99284; A9270

== ENCOUNTER 2024-08-13 20:12 | Emergency (ER) | payer MEDICAID, MEDICARE ==
[2024-08-13] MEDS: Orphenadrine 60 MG/2 ML Inj IM ONE (20:43)
[2024-08-13] MEDS: Ketorolac 30 MG/ML SDV IM ONE (20:45)
[2024-08-13] MEDS: oxyCODONE 5 MG Tab PO ONE (20:48)
[2024-08-13 20:59] VITALS: BP 118/75; PULSE 72
== END 2024-08-13 20:58 | disposition home or self-care (01) ==
LOC: MW.ED 20:12
DX: M54.50 Low back pain, unspecified (principal); J44.9 Chronic obstructive pulmonary disease, unspecified; K21.9 Gastro-esophageal reflux disease without esophagitis; M19.90 Unspecified osteoarthritis, unspecified site; E11.9 Type 2 diabetes mellitus without complications; E66.9 Obesity, unspecified; Z88.5 Allergy status to narcotic agent; Z79.01 Long term (current) use of anticoagulants; Z79.51 Long term (current) use of inhaled steroids; Z79.82 Long term (current) use of aspirin; Z79.899 Other long term (current) drug therapy
CPT/HCPCS: 96372; 99283; J1885; J2360